=== PATIENT | male | born 1995 | race Two or more races ===

== ENCOUNTER 2019-07-18 05:58 | Emergency (ER) | payer MEDICAID ==
[~2019-07-18] VITALS: Ht 177.8 cm; Wt 98.4 kg
[2019-07-18 06:03] VITALS: Ht 177.8 cm; Wt 98.4 kg
[2019-07-18 07:26] VITALS: BP 134/81
== END 2019-07-18 07:26 | disposition home or self-care (01) ==
LOC: ED 05:58
DX: M62.830 Muscle spasm of back (principal); R03.0 Elevated blood-pressure reading, without diagnosis of hypertension
CPT/HCPCS: 20552; J2001